=== PATIENT | male | born 1985 | race American Indian/Alaskan Native ===

== ENCOUNTER 2017-02-09 07:42 | Emergency (ER) | payer OTHER ==
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
[2017-02-09] MEDS ORDERED: Ketorolac 30 MG/ML SDV IM ONE (10:10)
[2017-02-09] MEDS ORDERED: Iopamidol 612 MG/ML 75 ML Bottle IARTIC ONE (10:15)
[2017-02-09] MEDS ORDERED: Sodium Chloride 0.9% 10 ML Syringe FLUSH PRN (10:16)
[2017-02-09 12:24] LABS: CHLORIDE,CL 102 mmol/L (101-111); SODIUM,NA 137 mmol/L (135-145)
[2017-02-09 14:25] VITALS: BP 130/70
== END 2017-02-09 14:30 ==
LOC: DL.ED 07:42
DX: S22.43XA Multiple fractures of ribs, bilateral, initial encounter for closed fracture (principal); S27.322A Contusion of lung, bilateral, initial encounter; S20.211A Contusion of right front wall of thorax, initial encounter; S00.81XA Abrasion of other part of head, initial encounter; S80.212A Abrasion, left knee, initial encounter; S80.811A Abrasion, right lower leg, initial encounter; F10.120 Alcohol abuse with intoxication, uncomplicated; F12.10 Cannabis abuse, uncomplicated; J45.909 Unspecified asthma, uncomplicated; F17.210 Nicotine dependence, cigarettes, uncomplicated; V57.5XXA Driver of pick-up truck or van injured in collision with fixed or stationary object in traffic accident, initial encounter
CPT/HCPCS: 36415; 70450; 71020; 71260; 72040; 72125; 80053; 80305; 81001; 85025; 96372; 99285; G0480; J1885; J7050; Q9967

== ENCOUNTER 2018-02-27 02:01 | Emergency (ER) | payer MEDICAID, OTHER ==
[2018-02-27 02:18] VITALS: BP 143/86
--- NOTE | 2018-02-27 02:32 | EDM.PDOC ---
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 [No Known Home Meds] 02/09/17 [History] Past Medical History HEENT History: Reports: None Cardiovascular History: Reports: None Respiratory History: Reports: Asthma Gastrointestinal History: Reports: None Genitourinary History: Reports: None Musculoskeletal History: Reports: None Neurological History: Reports: None Psychiatric History: Reports: None Endocrine/Metabolic History: Reports: None Hematologic History: Reports: None Immunologic History: Reports: None Oncologic (Cancer) History: Reports: None Dermatologic History: Reports: None - Infectious Disease History Infectious Disease History: Reports: Chicken Pox - Past Surgical History Head Surgeries/Procedures: Reports: None Social & Family History - Tobacco Use Smoking Status *Q: Current Every Day Smoker Years of Tobacco use: 16 Packs/Tins Daily: 4 - Caffeine Use Caffeine Use: Reports: Coffee, Energy Drinks, Soda, Tea - Recreational Drug Use Recreational Drug Use: No ED ROS GENERAL - Review of Systems Review Of Systems: See Below Constitutional: Reports: Fever, Chills, Malaise, Other (generalized body aches) HEENT: Reports: Ear Pain, Sinus Problem, Throat Pain Respiratory: Reports: Cough GI/Abdominal: Reports: No Symptoms Musculoskeletal: Reports: No Symptoms Skin: Reports: No Symptoms Neurological: Reports: Headache ED EXAM, GENERAL - Physical Exam Exam: See Below Exam Limited By: No Limitations General Appearance: Alert, Mild Distress Eye Exam: Bilateral Eye: EOMI Ears: Normal External Exam Ear Exam: Bilateral Ear: TM Red Nose: Normal Inspection Throat/Mouth: Inflammation Head: Atraumatic, Normocephalic Neck: Normal Inspection Respiratory/Chest: Other (loose harsh bronchial cough) Cardiovascular: Normal Peripheral Pulses, Regular Rate, Rhythm, Tachycardia GI/Abdominal: Normal Bowel Sounds Back Exam: Normal Inspection Extremities: Normal Inspection Neurological: Alert, Oriented, Normal Cognition Psychiatric: Normal Affect Skin Exam: Warm, Dry, Intact, Normal Color Course - Vital Signs Last Recorded V/S: Last Vital Signs Temp 100.8 F H 02/27/18 03:05 Pulse 133 H 02/27/18 02:07 Resp 21 H 02/27/18 02:07 BP 143/86 H 02/27/18 02:07 Pulse Ox 98 02/27/18 02:07 - Orders/Labs/Meds Orders: Active Orders 24 hr Category Date Time Status RT Aerosol Therapy [RC] ASDIRECTED Care 02/27/18 02:34 Active CXR [Chest 2V] [CR] Urgent Exams 02/27/18 02:26 Taken CMP [COMPREHENSIVE METABOLIC PN,CMP] [CHEM] Stat Lab 02/27/18 02:40 Received CULTURE STREP A CONFIRMATION [] Stat Lab 02/27/18 02:28 Results STREP SCRN A RAPID W CULT CONF [] Stat Lab 02/27/18 02:28 Results Sodium Chloride 0.9% [Normal Saline] 1,000 ml Med 02/27/18 02:37 Active IV .BOLUS Medication Orders Sodium Chloride (Normal Saline) 1,000 mls @ 999 mls/hr IV .BOLUS ONE Stop: 02/27/18 03:37 Last Admin: 02/27/18 02:46 Dose: 999 mls/hr Labs: Laboratory Tests 02/27/18 Range/Units 02:40 WBC 16.8 H (5.0-10.0) 10^3/uL RBC 5.55 (4.6-6.2) 10^6/uL Hgb 15.9 (14.0-18.0) g/dL Hct 46.0 (40.0-54.0) % MCV 82.9 (80-100) fL MCH 28.6 (27.0-34.0) pg MCHC 34.6 (33.0-35.0) g/dL Plt Count 239 (150-450) 10^3/uL Neut % (Auto) 74.4 (42.2-75.2) % Lymph % (Auto) 14.5 L (20.5-50.1) % [place] % (Auto) 8.3 H (2-8) % Eos % (Auto) 2.6 (1.0-3.0) % Baso % (Auto) 0.2 (0.0-1.0) % Meds: Medications Generic Name Dose Route Start Last Admin Trade Name Freq PRN Reason Stop Dose Admin Sodium Chloride 1,000 mls @ 999 mls/hr 02/27/18 02:37 02/27/18 02:46 Normal Saline IV 02/27/18 03:37 999 mls/hr .BOLUS ONE Administration Discontinued Medications Generic Name Dose Route Start Last Admin Trade Name Freq PRN Reason Stop Dose Admin Albuterol/Ipratropium 3 ml 02/27/18 02:34 02/27/18 02:46 Duoneb 3.0-0.5 Mg/3 Ml NEB 02/27/18 02:35 3 ml ONETIME ONE Administration Ibuprofen 600 mg 02/27/18 02:58 02/27/18 03:05 Motrin PO 02/27/18 02:59 600 mg ONETIME ONE Administration - Radiology Interpretation Free Text/Narrative:: cxr clear Departure - Departure Time of Disposition: 03:14 Disposition: Home, Self-Care 01 Condition: Good Clinical Impression: Influenza B - Discharge Information Instructions: Influenza, Adult, [id number] Forms: ED Department Discharge Additional Instructions: alternate tylenol and ibuprofen for discomfort tamiflu 75mg one twice daily for 5 days limit exposure to others, espeicially very young , old and poor immune systems increase fluid intake OTC muccinex or robitussin to loosen phlegmtesselon 200mg one every 8 hours as needed for cough #20 - My Orders Last 24 Hours: My Active Orders 02/27/18 02:26 CXR [Chest 2V] [CR] Urgent 02/27/18 02:28 CULTURE STREP A CONFIRMATION [RM] Stat STREP SCRN A RAPID W CULT CONF [RM] Stat 02/27/18 02:34 RT Aerosol Therapy [RC] ASDIRECTED 02/27/18 02:37 Sodium Chloride 0.9% [Normal Saline] 1,000 ml IV .BOLUS 02/27/18 02:40 CMP [COMPREHENSIVE METABOLIC PN,CMP] [CHEM] Stat - Assessment/Plan Last 24 Hours: My Active Orders 02/27/18 02:26 CXR [Chest 2V] [CR] Urgent 02/27/18 02:28 CULTURE STREP A CONFIRMATION [RM] Stat STREP SCRN A RAPID W CULT CONF [RM] Stat 02/27/18 02:34 RT Aerosol Therapy [RC] ASDIRECTED 02/27/18 02:37 Sodium Chloride 0.9% [Normal Saline] 1,000 ml IV .BOLUS 02/27/18 02:40 CMP [COMPREHENSIVE METABOLIC PN,CMP] [CHEM] Stat
[2018-02-27] MEDS ORDERED: Albuterol/Ipratropium 3.0-0.5 MG/3 ML Neb Soln NEB ONE (02:34)
[2018-02-27] MEDS ORDERED: Sodium Chloride 0.9% 1,000 ML IV ONE (02:37)
[2018-02-27] MEDS ORDERED: Ibuprofen 600 MG Tab PO ONE (02:58)
[2018-02-27 03:06] LABS: ANION GAP 12.8; CHLORIDE,CL 102 mmol/L (101-111); SODIUM,NA 136 mmol/L (135-145)
[2018-02-27] MEDS ORDERED: Oseltamivir 75 MG Cap PO ONE (03:12)
== END 2018-02-27 03:30 | disposition home or self-care (01) ==
LOC: DL.ED 02:01
DX: J10.1 Influenza due to other identified influenza virus with other respiratory manifestations (principal); F17.210 Nicotine dependence, cigarettes, uncomplicated
CPT/HCPCS: 36415; 71046; 80053; 85025; 87081; 87430; 87804; 96360; 99284; A9270; J7030; 99283

== ENCOUNTER 2022-04-03 09:17 | Emergency (ER) | payer MEDICAID ==
[2022-04-03 09:31] VITALS: BP 125/85; PULSE 69
[2022-04-03] MEDS ORDERED: Diphtheria,Pertussis(Acell),Tetanus Vaccine 0.5 ML Syringe IM ONE (09:36)
[2022-04-03] MEDS ORDERED: Lidocaine 2% with EPINEPHrine 1:200,000 20 ML SDV INJECT ONE (10:20)
[2022-04-03] MEDS ORDERED: Bacitracin Oint 1 GM U/D Packet TOP ONE (11:14)
== END 2022-04-03 11:40 | disposition home or self-care (01) ==
LOC: DL.ED 09:17
DX: S41.111A Laceration without foreign body of right upper arm, initial encounter (principal); F17.210 Nicotine dependence, cigarettes, uncomplicated; W01.0XXA Fall on same level from slipping, tripping and stumbling without subsequent striking against object, initial encounter; Y92.009 Unspecified place in unspecified non-institutional (private) residence as the place of occurrence of the external cause
CPT/HCPCS: 12004; 73090-RT; 73120-RT; 90471; 90715; 99283; 99283-25

== ENCOUNTER 2022-06-20 09:55 | Emergency (ER) | payer MEDICAID ==
[2022-06-20] MEDS ORDERED: GI Cocktail Oral Solution 30 ML PO ONE (10:10)
[2022-06-20] MEDS ORDERED: Dexamethasone 4 MG/ML SDV IVPUSH ONE (10:10)
[2022-06-20] MEDS ORDERED: Sodium Chloride 0.9% 10 ML Syringe FLUSH PRN (10:10)
[2022-06-20] MEDS ORDERED: cefTRIAXone 2 GM in Sodium Chloride 0.9% 100 ML IV ONE (10:11)
[2022-06-20 10:52] LABS: CORONAVIRUS COVID-19 NAA NEGATIVE (NEGATIVE); RESPIRATORY SYNCYTIAL VIR NAA NEGATIVE (NEGATIVE)
[2022-06-20] MEDS ORDERED: Iopamidol 612 MG/ML 100 ML Bottle IVPUSH ONE (11:13)
[2022-06-20 11:22] VITALS: BP 127/93; PULSE 72
== END 2022-06-20 13:44 | disposition home or self-care (01) ==
LOC: DL.ED 09:55
DX: J01.00 Acute maxillary sinusitis, unspecified (principal); Z79.899 Other long term (current) drug therapy; Z20.822 Contact with and (suspected) exposure to COVID-19
CPT/HCPCS: 0241U; 36415; 70491; 85025; 86140; 86308; 87081; 87430; 96365; 96375; 99284; A9270; J0696; J1100; Q9967

== ENCOUNTER 2022-11-06 01:01 | Emergency (ER) | payer MEDICAID ==
[2022-11-06 00:50] VITALS: BP 135/94; PULSE 82
[2022-11-06 01:07] LABS: CHLORIDE,CL 105 mmol/L (98-107); SODIUM,NA 144 mmol/L (136-145)
[2022-11-06 01:11] LABS: ESTIMATED GFR 96 mL/min (>=60)
[2022-11-06 01:21] LABS: AMPHETAMINES,URINE NEGATIVE (NEGATIVE); BARBITURATES,URINE NEGATIVE (NEGATIVE); BENZODIAZEPINE,URINE NEGATIVE (NEGATIVE); MDMA (ECSTASY), URINE NEGATIVE (NEGATIVE); METHADONE,URINE NEGATIVE (NEGATIVE); METHAMPHETAMINES,URINE NEGATIVE (NEGATIVE); OPIATES,URINE NEGATIVE (NEGATIVE); OXYCODONE,URINE NEGATIVE (NEGATIVE); PHENCYCLIDINE,URINE NEGATIVE (NEGATIVE); TCA,URINE NEGATIVE (NEGATIVE)
[2022-11-06] MEDS ORDERED: Escitalopram 10 MG Tab PO ONE (01:27)
== END 2022-11-06 01:47 ==
LOC: DL.ED 01:01
DX: F41.9 Anxiety disorder, unspecified (principal); Z79.899 Other long term (current) drug therapy; Z72.0 Tobacco use
CPT/HCPCS: 36415; 80053; 80305; 80307; 81003; 83735; 84484; 85025; 93005; 93010; 99283; 99285; A9270